=== PATIENT | female | born 1980 | race Hispanic/Latino ===

== ENCOUNTER 2021-10-18 11:50 | Inpatient (IN) | payer BC ==
[~2021-10-18] VITALS: Ht 162.6 cm; Wt 93.0 kg
[~2021-10-18 11:50] MED LIST: ACET-2079 PO; DOCU-116 PO; IBUP-1493 PO
[2021-10-18 12:36] LABS: APPEARANCE,URINE CLOUDY (CLEAR); BILIRUBIN,URINE SMALL (NEGATIVE); COLOR,URINE DARK YELLOW (YELLOW); GLUCOSE, URINE (UA) NEGATIVE (NEGATIVE); KETONES,URINE 5 mg/dL (NEGATIVE); LEUKOCYTE ESTERASE ,URINE TRACE (NEGATIVE); NITRATE,URINE NEGATIVE (NEGATIVE); OCCULT BLOOD,URINE LARGE (NEGATIVE); PROTEIN,URINE 100 mg/dL (NEGATIVE); UROBILINOGEN,URINE 0.2 mg/dL (0.2-1.0)
[2021-10-18 12:40] LABS: HCG,QUALITATIVE URINE NEGATIVE (NEGATIVE)
[2021-10-18 12:44] LABS: BACTERIA,URINE Rare /HPF (None Seen); RBC,URINE 51-100 /HPF (0-1); SQUAMOUS EPITHELIAL CELL,UR Few /HPF (0-2)
[2021-10-18] MEDS: MEROPENEM 1 GM VIAL IVP SCH ×2 (13:01→19:33)
[2021-10-18] MEDS: LACTATED RINGERS 1000ML 1,000 ML IV SCH ×2 (13:01→17:58)
[2021-10-18] MEDS: MORPHINE 2 MG SYG IVP PRN ×2 (13:01→17:59)
[2021-10-18 13:04] LABS: BASOPHILS % (AUTO) 0.4 % (0.0-5.0); EOSINOPHILS % (AUTO) 1.7 % (0.0-8.0); HEMATOCRIT 44.1 % (36-48); LYMPHOCYTES % (AUTO) 11.4 % (21.0-51.0); MEAN CORPUSCULAR HEMOGLOBIN 29.5 pg (27.0-33.0); MEAN CORPUSCULAR HGB CONC 33.3 g/dL (32.0-36.0); MEAN CORPUSCULAR VOLUME 88.4 fL (79-99); MONOCYTES % (AUTO) 10.5 % (3.0-13.0); NEUTROPHILS % (AUTO) 75.7 % (40.0-77.0); PLATELET COUNT (AUTO) 247 K/uL (130-400); RED BLOOD CELL COUNT(AUTO) 4.99 MIL/uL (4.00-5.50); RED CELL DISTRIBUTION WIDTH 13.3 % (11.0-15.5); WHITE BLOOD COUNT (AUTO) 11.3 K/uL (4.8-10.8)
[2021-10-18 13:29] LABS: CREATININE 1.4 mg/dL (0.5-1.5); POTASSIUM 3.7 mmol/L (3.5-5.1)
[2021-10-18 13:33] LABS: ALBUMIN 3.3 g/dL (3.5-5.0); TOTAL PROTEIN, SERUM 8.2 g/dL (6.0-8.3)
[2021-10-18 14:15] LABS: ERYTHROCYTE SEDIMENTATION RATE 99 MM/HR (0-20)
[2021-10-18 14:36] LABS: CRP QUANTITATIVE 143.4 mg/L (0.00-9.0)
[2021-10-18 14:46] VITALS: BP 119/90
[2021-10-18 19:18] VITALS: BP 133/88
[2021-10-18] MEDS: ACETAMINOPHEN 500 MG TABLET PO PRN (19:34)
[2021-10-18 23:28] VITALS: BP 112/75
[2021-10-19] MEDS: ONDANSETRON 4MG INJ IVP PRN ×2 (00:29→21:30)
[2021-10-19] MEDS: MORPHINE 2 MG SYG IVP PRN (00:29)
[2021-10-19 02:45] VITALS: BP 109/57
[2021-10-19] MEDS: ACETAMINOPHEN 500 MG TABLET PO PRN ×3 (02:53→18:42)
[2021-10-19] MEDS: LACTATED RINGERS 1000ML 1,000 ML IV SCH ×2 (03:31→13:27)
[2021-10-19] MEDS: MEROPENEM 1 GM VIAL IVP SCH ×3 (03:31→20:33)
[2021-10-19 06:37] LABS: BASOPHILS % (AUTO) 0.6 % (0.0-5.0); EOSINOPHILS % (AUTO) 1.5 % (0.0-8.0); HEMATOCRIT 37.9 % (36-48); LYMPHOCYTES % (AUTO) 13.2 % (21.0-51.0); MEAN CORPUSCULAR HEMOGLOBIN 29.6 pg (27.0-33.0); MEAN CORPUSCULAR HGB CONC 33.8 g/dL (32.0-36.0); MEAN CORPUSCULAR VOLUME 87.7 fL (79-99); MONOCYTES % (AUTO) 13.8 % (3.0-13.0); NEUTROPHILS % (AUTO) 70.6 % (40.0-77.0); PLATELET COUNT (AUTO) 209 K/uL (130-400); RED BLOOD CELL COUNT(AUTO) 4.32 MIL/uL (4.00-5.50); RED CELL DISTRIBUTION WIDTH 13.3 % (11.0-15.5); WHITE BLOOD COUNT (AUTO) 10.9 K/uL (4.8-10.8)
[2021-10-19 06:58] LABS: CREATININE 1.4 mg/dL (0.5-1.5)
[2021-10-19 08:00] VITALS: BP 122/81
[2021-10-19] MEDS ORDERED: 0.9% NACL 250ML IV SCH (10:30)
[2021-10-19 11:49] VITALS: BP 113/64
[2021-10-19] MEDS ORDERED: VANCOMYCIN PROTOCOL PER PHARMACY IV SCH (12:00)
[2021-10-19] MEDS: VANCOMYCIN 750MG VIAL IVPB SCH (12:48)
[2021-10-19] MEDS: FLUCONAZOLE 200 MG/NS 100 ML 100 ML IV SCH (12:48)
[2021-10-19] MEDS: HYDROCODONE/ACETAMINOPHEN 7.5/325 MG TAB PO PRN ×2 (14:13→20:42)
[2021-10-19 16:00] VITALS: BP 138/73
[2021-10-19 20:14] VITALS: BP 122/70
[2021-10-19 23:41] VITALS: BP 135/88
[2021-10-20] MEDS: VANCOMYCIN 750MG VIAL IVPB SCH ×2 (00:45→13:16)
[2021-10-20 03:42] VITALS: BP 128/78
[2021-10-20] MEDS: LACTATED RINGERS 1000ML 1,000 ML IV SCH ×2 (05:00→11:23)
[2021-10-20] MEDS: MEROPENEM 1 GM VIAL IVP SCH ×3 (05:00→20:44)
[2021-10-20] MEDS: ONDANSETRON 4MG INJ IVP PRN (05:12)
[2021-10-20 05:25] LABS: BASOPHILS % (AUTO) 0.5 % (0.0-5.0); EOSINOPHILS % (AUTO) 2.2 % (0.0-8.0); HEMATOCRIT 36.8 % (36-48); LYMPHOCYTES % (AUTO) 10.9 % (21.0-51.0); MEAN CORPUSCULAR HEMOGLOBIN 30.2 pg (27.0-33.0); MEAN CORPUSCULAR HGB CONC 33.7 g/dL (32.0-36.0); MEAN CORPUSCULAR VOLUME 89.5 fL (79-99); MONOCYTES % (AUTO) 12.8 % (3.0-13.0); NEUTROPHILS % (AUTO) 73.2 % (40.0-77.0); PLATELET COUNT (AUTO) 214 K/uL (130-400); RED BLOOD CELL COUNT(AUTO) 4.11 MIL/uL (4.00-5.50); RED CELL DISTRIBUTION WIDTH 13.3 % (11.0-15.5); WHITE BLOOD COUNT (AUTO) 10.1 K/uL (4.8-10.8)
[2021-10-20 05:39] LABS: CREATININE 1.4 mg/dL (0.5-1.5); POTASSIUM 4.1 mmol/L (3.5-5.1)
[2021-10-20] MEDS: ACETAMINOPHEN 500 MG TABLET PO PRN ×2 (06:00→15:48)
[2021-10-20 07:13] VITALS: BP 107/64
[2021-10-20] MEDS: FLUCONAZOLE 200 MG/NS 100 ML 100 ML IV SCH (11:08)
[2021-10-20] MEDS ORDERED: METOCLOPRAMIDE 10 MG/2 ML VIAL IVP PRN (12:00)
[2021-10-20 12:29] VITALS: BP 112/74
[2021-10-20 16:18] VITALS: BP 115/75
[2021-10-20 19:28] VITALS: BP 111/72
[2021-10-20] MEDS: HYDROCODONE/ACETAMINOPHEN 7.5/325 MG TAB PO PRN (20:58)
[2021-10-20 23:22] VITALS: BP 104/69
[2021-10-20] MEDS ORDERED: LOPERAMIDE HCL 2 MG CAP PO ONE (23:30)
[2021-10-21] MEDS: VANCOMYCIN 750MG VIAL IVPB SCH ×2 (00:10→15:31)
[2021-10-21] MEDS: LACTATED RINGERS 1000ML 1,000 ML IV SCH ×3 (00:30→21:52)
[2021-10-21] MEDS: MEROPENEM 1 GM VIAL IVP SCH ×3 (04:07→21:52)
[2021-10-21 04:30] VITALS: BP 121/75
[2021-10-21 05:23] LABS: BASOPHILS % (AUTO) 0.6 % (0.0-5.0); EOSINOPHILS % (AUTO) 3.7 % (0.0-8.0); HEMATOCRIT 34.5 % (36-48); LYMPHOCYTES % (AUTO) 19.4 % (21.0-51.0); MEAN CORPUSCULAR HEMOGLOBIN 29.9 pg (27.0-33.0); MEAN CORPUSCULAR HGB CONC 33.3 g/dL (32.0-36.0); MEAN CORPUSCULAR VOLUME 89.6 fL (79-99); MONOCYTES % (AUTO) 10.5 % (3.0-13.0); NEUTROPHILS % (AUTO) 65.4 % (40.0-77.0); PLATELET COUNT (AUTO) 231 K/uL (130-400); RED BLOOD CELL COUNT(AUTO) 3.85 MIL/uL (4.00-5.50); RED CELL DISTRIBUTION WIDTH 13.4 % (11.0-15.5); WHITE BLOOD COUNT (AUTO) 8.5 K/uL (4.8-10.8)
[2021-10-21 05:37] LABS: CREATININE 1.3 mg/dL (0.5-1.5)
[2021-10-21 07:18] VITALS: BP 107/73
[2021-10-21] MEDS: MORPHINE 2 MG SYG IVP PRN ×2 (10:40→21:51)
[2021-10-21] MEDS: FLUCONAZOLE 200 MG/NS 100 ML 100 ML IV SCH (11:26)
[2021-10-21 12:09] VITALS: BP 113/72
[2021-10-21 15:20] LABS: INR 0.93 (0.85-1.15)
[2021-10-21] MEDS ORDERED: 0.9% NACL 250ML 250 ML ONE (15:27)
[2021-10-21 16:10] VITALS: BP 114/66
[2021-10-21 20:30] VITALS: BP 118/68
[2021-10-22 00:23] VITALS: BP 106/65
[2021-10-22] MEDS: VANCOMYCIN 750MG VIAL IVPB SCH ×2 (00:30→11:40)
[2021-10-22 04:15] VITALS: BP 106/64
[2021-10-22] MEDS: MEROPENEM 1 GM VIAL IVP SCH ×2 (05:07→11:40)
[2021-10-22 09:41] VITALS: BP 114/72
[2021-10-22 11:00] VITALS: BP 117/76
[2021-10-22] MEDS: FLUCONAZOLE 200 MG/NS 100 ML 100 ML IV SCH (11:08)
[2021-10-22 12:15] LABS: HEMATOCRIT 37.1 % (36-48); MEAN CORPUSCULAR HEMOGLOBIN 29.3 pg (27.0-33.0); MEAN CORPUSCULAR HGB CONC 32.9 g/dL (32.0-36.0); RED BLOOD CELL COUNT(AUTO) 4.17 MIL/uL (4.00-5.50); RED CELL DISTRIBUTION WIDTH 13.2 % (11.0-15.5)
[2021-10-22] MEDS ORDERED: METO10TA41 PO (12:16)
[2021-10-22 12:24] LABS: CREATININE 1.3 mg/dL (0.5-1.5); POTASSIUM 4.1 mmol/L (3.5-5.1)
== END 2021-10-22 15:01 | disposition home or self-care (01) | DRG 872 ==
LOC: EDH 11:50 → EDHIP 12:14 → 3BH 14:46
PROVIDERS: ADMIT Internal Medicine; ATTEND Internal Medicine
PROC: 02HV33Z Insertion of Infusion Device into Superior Vena Cava, Percutaneous Approach (ICD-10-PCS; principal; 2021-10-22)
DX: A41.50 Gram-negative sepsis, unspecified (principal); N17.9 Acute kidney failure, unspecified; N13.6 Pyonephrosis; I10 Essential (primary) hypertension; Z20.822 Contact with and (suspected) exposure to COVID-19; Z90.710 Acquired absence of both cervix and uterus; E66.9 Obesity, unspecified; Z68.35 Body mass index [BMI] 35.0-35.9, adult; Z87.442 Personal history of urinary calculi; F41.9 Anxiety disorder, unspecified
CPT/HCPCS: 36415; 71045; 74176; 80048; 80053; 80202; 81001; 81025; 83605; 84145; 85025; 85027; 85610; 85651; 86140; 87040; 87088; 87635; 87804; C1894; G0378; J1450; J2185; J2405; J2765; J7050; J7120

== ENCOUNTER → 2024-12-16 | Outpatient (CLI) | payer BC ==
[~2024-12-16] MED LIST changes: -ACET-2079 PO; -DOCU-116 PO; +METO10TA41 PO
== END | disposition home or self-care (01) ==
LOC: RAH 10:58
PROVIDERS: ATTEND Nurse Practitioner Adult Health
DX: Z12.31 Encounter for screening mammogram for malignant neoplasm of breast (principal)
CPT/HCPCS: 77063; 77067